=== PATIENT | female | born 1960 | race Two or more races ===

== ENCOUNTER → 2017-02-08 | Outpatient (CLI) | payer BC ==
[~2017-02-08] MED LIST: AMLODIPINE BESYL5 MG; COREG6.25 MG PO; HYDROCHLOROTHIA25 MG; INDERAL LA PO; K-DUR10 MEQ PO; LISINOPRIL-HCTZ1 T17 PO; LOMOTIL TABLET1 TAB PO; LORTAB 5/500 TA1 TA1 PO; METFORMIN HCL500 M3 PO; NEXIUM20 MG; OMEPRAZOLE40 MG PO; PERCOCET 5/321 UDTAB PO; PROVERA10 MG PO; ZESTRIL40 MG PO
--- NOTE | ~2017-02-08 | PFT ---
[id number] [facility] [address] [place], [place] [address] [id number] O MR#: [id number] NAME: CARYL VILLAR ROOM: SEX: F STUDY DATE/TIME: 02/09/2017 : 1960 AGE: 56 STUDY DESCRIPTION: Attending Physician: Danish Rivero M.D. Referring Physician: Danish Rivero M.D. Primary Care Physician: Danish Rivero M.D. PULMONARY DIAGNOSTIC REPORT EXAM Pulmonary function test. FINDINGS Spirometry is normal. There is no significant response to bronchodilators. Flow volume loop is essentially normal. Lung volumes are fairly unremarkable, although ERV is markedly reduced and I suspect that is an erroneous finding. Diffusion capacity also is markedly increased and I also suspect that might be erroneous, although no comments were made by the recreational therapy technician. Please interpret those numbers with caution. Overall, however, spirometry is normal. Dictated by... Jaycob Lynch M.D. WAYNE/thelma TD: 02/10/2017 06:25 JOB #: [id number] PULMONARY DIAGNOSTIC REPORT Page 1 of 1
== END | disposition home or self-care (01) ==
LOC: CRC 13:32
DX: R06.09 Other forms of dyspnea (principal)
CPT/HCPCS: 94060; 94726; 94729

== ENCOUNTER → 2017-02-25 | Outpatient (CLI) | payer BC ==
[2017-02-25 14:19] LABS: ALBUMIN SERUM 4.7 g/dL (3.5-5.0); BILIRUBIN,TOTAL 0.5 mg/dL (0.2-2.0); CALCIUM SERUM 9.6 mg/dL (8.4-10.2); CREATININE SERUM 0.4 mg/dL (0.6-1.4); GLOM FILT RATE Estimated 118.1 mL/min (>60); POTASSIUM 3.6 mmol/L (3.5-5.1); PROTEIN TOTAL SERUM 7.4 g/dL (6.0-8.3)
[2017-02-28 10:23] LABS: MICROALB UR (PNL) 13.8 mg/dL (***)
== END | disposition home or self-care (01) ==
LOC: CLAB 13:05
PROVIDERS: Internal Medicine Endocrinology, Diabetes & Metabolism
DX: E11.65 Type 2 diabetes mellitus with hyperglycemia (principal)
CPT/HCPCS: 36415; 80053; 80061; 82043; 82570; 83036; 84443

== ENCOUNTER → 2017-03-02 | Outpatient (CLI) | payer BC ==
--- NOTE | ~2017-03-02 | US6 ---
[facility] A Service of [facility] RADIOLOGY TEXT RESULTS PATIENT: CARYL VILLAR LOCATION: [facility] : 64 UNIT #: [id number] AGE: [address]: Danish Rivero MD SEX: F ORDER DR: [id number] [facility]. [place], [place] [address] [id number] O MR#: [id number] Acc #: [id number] NAME: CARYL VILLAR : 1960 SEX: F STUDY DATE/TIME: 03/02/2017 8:27 UNIT: [facility] ROOM: STUDY DESCRIPTION: US Abdominal Limited Attending Physician: Danish Rivero M.D. Referring Physician: Danish Rivero M.D. Ordering Physician: Danish Rivero M.D. Primary Care Physician: Danish Rivero M.D. MEDICAL IMAGING REPORT This report is preliminary unless electronic signature is present EXAM Right upper quadrant ultrasound. DATE OF EXAM 03/02/2017 INDICATION Abnormal elevated liver function tests. Nausea on and off for 6 months. TECHNIQUE Simms-scale and color Doppler sonographic images were obtained through the right upper quadrant. FINDINGS Pancreas is not well seen. The patient is noted to have diffuse hepatic steatosis, and the liver is enlarged measuring up to 17.3 cm in craniocaudal dimensions. The liver is difficult to penetrate. No obvious lesions are seen. The main portal vein is patent with hepatopetal flow. Gallbladder is normal in appearance. There is no gallbladder wall thickening, no pericholecystic fluid and no stone or sludge are identified. The patient's right kidney is also normal in appearance with no solid or cystic renal mass is seen and no hydronephrosis identified. There is no intra or extrahepatic biliary dilatation. IMPRESSION 1. Hepatomegaly and diffuse hepatic steatosis. 2. Pancreas is not well seen on this examination, although it is well seen on today's CT scan. At that time, it appeared unremarkable. Dictated by... [facility] A Service of [facility] RADIOLOGY TEXT RESULTS PATIENT: CARYL VILLAR LOCATION: [facility] #: [id number] : 64 UNIT #: [id number] AGE: [address]: Danish Rivero MD SEX: F ORDER DR: Stephanie Vazquez M.D. THIS IS AN ELECTRONICALLY VERIFIED REPORT Stephanie Vazquez M.D. at 03/03/2017 10:37 AM AFF/jdorota TD: 03/02/2017 18:35 JOB #: [id number] MEDICAL IMAGING REPORT Page 1 of 1 COPY
--- NOTE | ~2017-03-02 | EKG ---
PATIENT: CARYL VILLAR UNIT #: [id number] Ventricular Rate: 66 BPM Atrial Rate: 66 BPM P-R Interval: 140 ms QRS Duration: 82 ms Q-T Interval: 420 ms QTC Calculation(Bezet): 440 ms P Canyon: 22 degrees Calculated R Canyon: 27 degrees Calculated T Canyon: 18 degrees Diagnosis Line: Normal sinus rhythm Diagnosis Line: Normal ECG Diagnosis Line: When compared with ECG of 28-JAN-2012 15:46, Diagnosis Line: No significant change was found Diagnosis Line: Confirmed by MARYCRUZ CRUZ MD ([id number]) on 03/02/2017 Diagnosis Line: 10:50:03 PM INTERPRETING MD: ANTHONY RODRIGUES
--- NOTE | ~2017-03-02 | CT55 ---
[facility] A Service of [facility] RADIOLOGY TEXT RESULTS PATIENT: CARYL VILLAR LOCATION: [facility] : 64 UNIT #: [id number] AGE: [address]: Danish Rivero MD SEX: F ORDER DR: [id number] [facility] [address] [place], [place] [address] [id number] O MR#: [id number] Acc #: [id number] NAME: CARYL VILLAR : 1960 SEX: F STUDY DATE/TIME: 03/02/2017 09:17 UNIT: [facility] ROOM: STUDY DESCRIPTION: CT Chest W Con Attending Physician: Danish Rivero M.D. Referring Physician: Danish Rivero M.D. Ordering Physician: Danish Rivero M.D. Primary Care Physician: Danish Rivero M.D. MEDICAL IMAGING REPORT This report is preliminary unless electronic signature is present EXAM CT chest with contrast 03/02/2017 0917 hours HISTORY 56-year-old with nausea, chest pain and low lung volumes for [address] 03/28/2009. TECHNIQUE Dynamic helical CT images were obtained from the thoracic inlet through the adrenal glands. Sagittal and coronal reconstructions were performed. Contrast was Isovue-370 70 mL IV. Total exam DLP 583 mGy-cm. This CT examination was performed with one or more of the following radiation dose reduction techniques: automatic exposure control, adjustment of mA and/or kV according to patient size, and iterative reconstruction. FINDINGS Images through the thoracic inlet demonstrate no thyroid lesion. There is no supraclavicular adenopathy. Images through the chest demonstrate normal caliber aorta, cardiac chambers. The pericardium is normal. The esophagus is normal. There is no lymphadenopathy. The lungs demonstrate subpleural linear fibrotic scarring laterally in the right middle lobe and right lower lobe, laterally in the lingula and medially in both lower lobes. These findings are very similar to 03/28/2009 and felt chronic. There is no acute pulmonary density. Limited views through the upper abdomen demonstrate marked diffuse low attenuation throughout the liver consistent with fatty change. The spleen, visualized portions of the pancreas are normal. The adrenal STS. [facility] A Service of [facility] & [facility] RADIOLOGY TEXT RESULTS PATIENT: CARYL VILLAR LOCATION: [facility] : 64 UNIT #: [id number] AGE: [address]: Danish Rivero MD SEX: F ORDER DR: glands are normal. Bone window images demonstrate stable mild underlying scoliosis. No bone lesions are seen. IMPRESSION 1. There are no acute pulmonary or pleural findings. The patient does have linear fibrotic scarring laterally in the right middle lobe and lingula and posteromedially in both lower lobes which is similar to 03/28/2009. This likely represents chronic scar. 2. There is no lymphadenopathy or pleural fluid. 3. Diffuse fatty infiltration of the liver similar to 03/28/2009. There is no adrenal or bone lesion. Dictated by... Anjelica Remy M.D. THIS IS AN ELECTRONICALLY VERIFIED REPORT Anjelica Remy M.D. at 03/02/2017 2:29 PM CESAR/srikanth TD: 03/02/2017 11:24 JOB #: [id number] MEDICAL IMAGING REPORT Page 1 of 1 COPY
== END | disposition home or self-care (01) ==
LOC: CGUS 07:26
DX: R07.9 Chest pain, unspecified (principal); R11.0 Nausea; J98.4 Other disorders of lung; K76.0 Fatty (change of) liver, not elsewhere classified
CPT/HCPCS: 71260; 76705; 93005; Q9967

== ENCOUNTER → 2017-03-22 | Outpatient (CLI) | payer BC ==
--- NOTE | ~2017-03-22 | US128 ---
[id number] [facility] [address] [place], [place] [address] [id number] O MR#: [id number] [facility] #: [id number] NAME: CARYL VILLAR : 1960 SEX: F STUDY DATE/TIME: 03/22/2017 15:27 UNIT: [facility] ROOM: STUDY DESCRIPTION: Thyroid Attending Physician: Alexandra Patrick M.D. Referring Physician: Alexandra Patrick M.D. Ordering Physician: Alexandra Patrick M.D. Primary Care Physician: Danish Rivero M.D. MEDICAL IMAGING REPORT This report is preliminary unless electronic signature is present EXAM Ultrasound of the thyroid gland. INDICATION Thyroid nodules. This is a followup study. Patient had an initial thyroid ultrasound in 2010 which showed a 1.1 cm solid nodule in the left lobe of the thyroid gland. Subsequent thyroid ultrasound was performed November 06, 2012. TECHNIQUE Simms-scale and color Doppler sonographic images were obtained through the thyroid gland. FINDINGS Right lobe of thyroid gland measures 1.5 x 4.1 x 1.3 cm. Left lobe measures 1.8 x 3.9 x 1.7 cm. There are multiple thyroid nodules within the inferior pole of the right lobe of the thyroid gland. There is a 6 x 3 x 6 mm anechoic structure which may reflect a cyst. There is a solid hypoechoic nodule seen more superiorly measuring 7 x 4 x 7 mm and there is an additional hypoechoic solid nodule seen within the superior pole of the right lobe of the thyroid gland measuring 5 x 3 x 5 mm. Within the left lobe of the thyroid gland, additional nodules are seen including a 1.2 x 0.6 x 0.7 cm nodule within the superior pole. A mixed solid and cystic lesion is seen inferior to it measuring 1.1 x 0.8 x 0.8 cm and within the inferior pole, there is a 1.0 x 0.6 x 0.8 cm hypoechoic nodule which potentially may reflect a complex cyst.. It is unclear if any of these nodules on the left corresponds to the previously identified nodule from 2011. IMPRESSION This patient has multiple bilateral thyroid nodules. These were not present on the prior exam from October 2012. None meet size criteria for percutaneous sampling at this time. I would suggest short-term sonographic followup in 6 months to document stability. Dictated by... Stephanie Vazquez M.D. THIS IS AN ELECTRONICALLY VERIFIED REPORT Stephanie Vazquez M.D. at 03/23/2017 5:22 PM ABRIL/suzette TD: 03/23/2017 11:31 JOB #: [id number] MEDICAL IMAGING REPORT Page 1 of 1 COPY
== END | disposition home or self-care (01) ==
LOC: CGUS 13:30
DX: E04.2 Nontoxic multinodular goiter (principal)
CPT/HCPCS: 76536

== ENCOUNTER 2017-05-09 13:39 | Emergency (ER) | payer BC ==
--- NOTE | ~2017-05-09 | CR58 ---
[facility] A Service of [facility] RADIOLOGY TEXT RESULTS PATIENT: CARYL VILLAR LOCATION: [facility] : 64 UNIT #: [id number] AGE: [address]: Dev Ram MD SEX: F ORDER DR: [id number] [id number] [facility]. [place], [place] [address] [id number] P MR#: [id number] Acc #: [id number] NAME: CARYL VILLAR : 1960 SEX: F STUDY DATE/TIME: 05/09/2017 14:39 UNIT: [facility] ROOM: STUDY DESCRIPTION: CR Cervical Spine 2 or 3 Views Attending Physician: Dev Ram M.D. Ordering Physician: [facility] Primary Care Physician: Danish Rivero M.D. MEDICAL IMAGING REPORT This report is preliminary unless electronic signature is present EXAM Cervical series 05/09/2017 INDICATIONS 56-year-old female who fell off porch today and has pain in the right neck. TECHNIQUE Dedicated odontoid, open-mouth odontoid, lateral and frontal views of the cervical spine were performed. COMPARISON STUDIES No comparisons. FINDINGS Dens appears intact. Lateral masses not adequately visualized for radiographic clearance. There are lucencies associated with the skull base or the posterior ring of C1 on the dedicated odontoid view, likely related to nutrient canals, sutures or vascular channels but are incompletely characterized on this plain film study. The patient would benefit from further evaluation with dedicated CT. Cervicothoracic junction intact. No distinct evidence of acute fracture or malalignment. Soft tissues are unremarkable. There is mild lower cervical facet arthropathy and there is mild degenerative disc disease at C5-C6. Carotid artery calcifications are present on the left. There is uncovertebral spurring in the kvq-wd-ssszo cervical levels. IMPRESSION 1. The dens and lateral masses are suboptimally visualized or assessed. Suggest further evaluation with a dedicated CT of the cervical spine for further assessment and characterization. [facility] A Service of [facility] RADIOLOGY TEXT RESULTS PATIENT: CARYL VILLAR LOCATION: [facility] : 64 UNIT #: [id number] AGE: [address]: Dev Ram MD SEX: F ORDER DR: 2. There is degenerative change in the uxd-qo-lrjgv cervical levels related to degenerative disc disease and facet arthropathy. Uncovertebral spurring also present in the wgy-cz-pnjol cervical spine. 3. Atherosclerotic calcifications of the carotid system on the left, a risk factor for stroke. STAT * RESULT Dictated by... Juice Murphy M.D. THIS IS AN ELECTRONICALLY VERIFIED REPORT Juice Murphy M.D. at 05/09/2017 5:02 PM RUDY/lexy TD: 05/09/2017 16:27 JOB #: [id number] MEDICAL IMAGING REPORT Page 1 of 1 COPY
--- NOTE | ~2017-05-09 | CR142 ---
[facility] A Service of [facility] & [facility] RADIOLOGY TEXT RESULTS PATIENT: CARYL VILLAR LOCATION: [facility] : 64 UNIT #: [id number] AGE: [address]: Dev Ram MD SEX: F ORDER DR: [id number] [facility] [address] [facility]. [place], [place] [address] [id number] E MR#: [id number] Acc #: [id number] NAME: CARYL VILLAR : 1960 SEX: F STUDY DATE/TIME: 05/09/2017 14:29 UNIT: [facility] ROOM: STUDY DESCRIPTION: CR Hand Min 3 Views Rt Attending Physician: Dev Ram M.D. Ordering Physician: Ed Doctor [id number] [facility] Primary Care Physician: Danish Rivero M.D. MEDICAL IMAGING REPORT This report is preliminary unless electronic signature is present EXAM Right hand 05/09/2017 INDICATIONS Trauma, fell off porch. Pain. Severe pain in the right hand. Clinical concern for dislocation or fracture. Swelling of the right hand. TECHNIQUE Two views of the right hand were performed. No comparisons. FINDINGS Exam degraded by nonstandard positioning and only 2 views were performed. The bones are osteopenic. No acute fracture. No retained opaque foreign body. There is artifact presumably related to an air cast or splint. IMPRESSION Limited imaging of the right hand is negative. No distinct fracture. Dictated by... Juice Murphy M.D. THIS IS AN ELECTRONICALLY VERIFIED REPORT Juice Murphy M.D. at 05/10/2017 12:56 PM Scott TD: 05/09/2017 23:01 JOB #: [id number] MEDICAL IMAGING REPORT Page 1 of 1 COPY
--- NOTE | ~2017-05-09 | CR94 ---
[facility] A Service of [facility] RADIOLOGY TEXT RESULTS PATIENT: CARYL VILLAR LOCATION: [facility] : 64 UNIT #: [id number] AGE: [address]: Dev Ram MD SEX: F ORDER DR: [id number] [facility] [address] [facility]. [place], [place] [address] [id number] E MR#: [id number] Acc #: [id number] NAME: CARYL VILLAR : 1960 SEX: F STUDY DATE/TIME: 05/09/2017 17:40 UNIT: [facility] ROOM: STUDY DESCRIPTION: CR Elbow Min 3 Views Rt Attending Physician: Dev Ram M.D. Ordering Physician: Dev Ram M.D. Primary Care Physician: Danish Rivero M.D. MEDICAL IMAGING REPORT This report is preliminary unless electronic signature is present EXAM Right elbow. INDICATIONS Fall off of porch. Dislocated right elbow. FINDINGS Three views of the right elbow compared to 05/09/2017. Postreduction radiographs show anatomic alignment of the right elbow. There are 2 osseous fragments in the anterior joint recess compatible with fracture fragments. These are presumably off of the coronoid process of the ulna. There is a small joint effusion. IMPRESSION 1. Anatomic alignment status post elbow reduction. 2. Fracture fragments in the anterior joint recess presumably from an avulsed fracture off the coronoid process of the ulna. Dictated by... Sonny Castellon M.D. THIS IS AN ELECTRONICALLY VERIFIED REPORT Sonny Castellon M.D. at 05/10/2017 10:49 AM MARCELLA/thelma TD: 05/10/2017 08:26 JOB #: [id number] MEDICAL IMAGING REPORT Page 1 of 1 COPY
--- NOTE | ~2017-05-09 | CR230 ---
[facility] A Service [facility] RADIOLOGY TEXT RESULTS PATIENT: CARYL VILLAR LOCATION: [facility] : 64 UNIT #: [id number] AGE: [address]: Dev Ram MD SEX: F ORDER DR: [id number] [address] [address] [id number] E MR#: [id number] Acc #: [id number] NAME: CARYL VILLAR : 1960 SEX: F STUDY DATE/TIME: 05/09/2017 14:24 UNIT: [facility] ROOM: STUDY DESCRIPTION: CR Shoulder Min 2 View Rt Attending Physician: Dev Ram M.D. Ordering Physician: [facility] Primary Care Physician: Danish Rivero M.D. MEDICAL IMAGING REPORT This report is preliminary unless electronic signature is present EXAM Right shoulder 05/09/2017 INDICATIONS 56-year-old female who fell off porch today. Severe pain and swelling in the right neck and right shoulder. Collarbone pain and elbow pain. TECHNIQUE 2 views of the right shoulder. COMPARISON STUDIES No comparisons. FINDINGS The bones are osteoporotic. No acute fracture. No secondary sign of dislocation. A scapular Y-view was not performed. No distinct evidence of shoulder separation. IMPRESSION 1. Osteoporosis but no acute fracture or dislocation. Dictated by... Juice Murphy M.D. THIS IS AN ELECTRONICALLY VERIFIED REPORT Juice Murphy M.D. at 05/10/2017 12:56 PM RUDY/lexy TD: 05/09/2017 22:36 JOB #: [id number] MEDICAL IMAGING REPORT [facility] A Service [facility] RADIOLOGY TEXT RESULTS PATIENT: CARYL VILLAR LOCATION: [facility] : 64 UNIT #: [id number] AGE: [address]: Dev Ram MD SEX: F ORDER DR: Page 1 of 1 COPY
--- NOTE | ~2017-05-09 | CR133 ---
[facility] A Service of [facility] RADIOLOGY TEXT RESULTS PATIENT: CARYL VILLAR LOCATION: [facility] : 64 UNIT #: [id number] AGE: [address]: Dev Ram MD SEX: F ORDER DR: [id number] [id number] [facility]. [place], [place] [address] [id number] P MR#: [id number] Acc #: [id number] NAME: CARYL VILLAR : 1960 SEX: F STUDY DATE/TIME: 05/09/2017 14:36 UNIT: [facility] ROOM: STUDY DESCRIPTION: CR Forearm 2 View Rt Attending Physician: Dev Ram M.D. Ordering Physician: [facility] Primary Care Physician: Danish Rivero M.D. MEDICAL IMAGING REPORT This report is preliminary unless electronic signature is present EXAM Right forearm 05/09/2017 INDICATIONS 56-year-old female who fell off porch today and has pain in the elbow. Forearm pain. Clinical concern for fracture or dislocation. TECHNIQUE 2 views of the right forearm. COMPARISON STUDIES No comparisons. FINDINGS The entire right forearm is not included in the field of view and these were apparently the best images possible given the patient's functional status. There is artifact related to the presumed splint or brace. The bones are osteopenic. The patient has a known elbow dislocation partially included within the field of view. Please see the elbow series for further details. No acute fracture of the forearm identified. IMPRESSION 1. The patient has an elbow dislocation partially included in the field of view. Please see the elbow series for further details. 2. The bones are osteopenic. No acute fracture. Artifact related to a splint or brace. STAT * RESULT [facility] A Service of [facility] RADIOLOGY TEXT RESULTS PATIENT: CARYL VILLAR LOCATION: [facility] : 64 UNIT #: [id number] AGE: [address]: Dev Ram MD SEX: F ORDER DR: Dictated by... Juice Murphy M.D. THIS IS AN ELECTRONICALLY VERIFIED REPORT Juice Murphy M.D. at 05/09/2017 3:46 PM INDERJITY/pcl TD: 05/09/2017 15:37 JOB #: [id number] MEDICAL IMAGING REPORT Page 1 of 1 COPY
--- NOTE | ~2017-05-09 | CT52 ---
[facility] A Service of [facility] & [facility] RADIOLOGY TEXT RESULTS PATIENT: CARYL VILLAR LOCATION: [facility] : 64 UNIT #: [id number] AGE: [address]: Dev Ram MD SEX: F ORDER DR: [id number] [facility] [address] [place], [place] [address] [id number] E MR#: [id number] Acc #: [id number] NAME: CARYL VILLAR : 1960 SEX: F STUDY DATE/TIME: 05/09/2017 17:25 UNIT: [facility] ROOM: STUDY DESCRIPTION: CT Cervical Spine Wo Cont Attending Physician: Dev Ram M.D. Ordering Physician: Dev Ram M.D. Primary Care Physician: Danish Rivero M.D. MEDICAL IMAGING REPORT This report is preliminary unless electronic signature is present EXAM CT C-spine without contrast dated 05/09/2017. COMPARISON Plain film cervical spine dated 05/09/2017. HISTORY Patient fell today and hit top of the head. Pain behind forehead. Neck pain in the right side. The CT exam was performed with one or more of the following radiation dose reduction techniques: automatic exposure control, adjustment of mA and/or kV according to patient size, and iterative reconstruction. FINDINGS CT of the cervical spine was obtained without contrast in the axial plane followed by sagittal and coronal reformats. There is no acute fracture. Endplate posterior prominent osteophytes are noted at C5-6 with associated mild canal stenosis. There is loss of the normal curvature at this level. Anteroinferior endplate osteophyte is also seen at C6 with probably some associated ossification of the internal longitudinal ligament. Benign. The other levels do not demonstrate any significant focal disc herniation, canal stenosis or neural foraminal narrowing. Mild facet changes are noted in the mid cervical spine. Pre and paravertebral soft tissues do not demonstrate any significant abnormality. Fatty infiltration of bilateral parotid glands are noted. There is a hypodense lesion within the posterior mid left thyroid lobe measuring 7.5 x 6 mm. Imaged lung apices are within normal limits. IMPRESSION 1. No acute fracture. STS. [facility] A Service of [facility] & [facility] RADIOLOGY TEXT RESULTS PATIENT: CARYL VILLAR [facility] [id number] : 64 UNIT #: [id number] AGE: [address]: Dev Ram MD SEX: F ORDER DR: 2. Degenerative changes are noted at C5-6 with posterior central osteophyte causing mild canal stenosis. No significant associated neural foraminal narrowing is seen. 3. 7.5 mm left thyroid hypodense nodule is seen, incompletely characterized in the current study. Hounsfield unit measures 16 and it is probably a colloid cyst based on statistics. Dictated by... Dyan Alan M.D. THIS IS AN ELECTRONICALLY VERIFIED REPORT Dyan Alan M.D. at 05/10/2017 9:01 PM CPR/cmmatilde TD: 05/10/2017 08:46 JOB #: [id number] MEDICAL IMAGING REPORT Page 1 of 1 COPY
--- NOTE | ~2017-05-09 | CT71 ---
[facility] A Service of [facility] & [facility] RADIOLOGY TEXT RESULTS PATIENT: CARYL VILLAR LOCATION: [facility] : 64 UNIT #: [id number] AGE: [address]: Dev Ram MD SEX: F ORDER DR: [id number] [facility] [address] [place], [place] [address] [id number] E MR#: [id number] Acc #: [id number] NAME: CARYL VILLAR : 1960 SEX: F STUDY DATE/TIME: 05/09/2017 14:59 UNIT: [facility] ROOM: STUDY DESCRIPTION: CT Head Wo Contrast Attending Physician: Dev Ram M.D. Ordering Physician: Alex Corbin M.D. Primary Care Physician: Danish Rivero M.D. MEDICAL IMAGING REPORT This report is preliminary unless electronic signature is present EXAM CT head, 05/09/2017 HISTORY Fall today, hit top head, pain behind forehead. TECHNIQUE CT head performed skull base through vertex without intravenous contrast. Comparison 09/30/2011. This CT exam was performed with one or more of the following radiation dose reduction techniques: Automatic exposure control, adjustment of mA and/or kV according to patient size, and iterative reconstruction. FINDINGS Brainstem unremarkable. Cerebellum and cerebral hemispheres show normal garcia matter-white matter differentiation. No hemorrhage. No evidence of acute cortical ischemia. Periventricular chronic microvascular ischemic change more pronounced in the right frontal lobe and more pronounced than on prior examination. The midline structures are nondisplaced. No acute-appearing basal ganglia abnormality. Ventricles, cisterns and sulci within normal limits of size and contour. No intra- or extraaxial mass effect or abnormal intracranial fluid collection. The visualized intraorbital soft tissues are unremarkable. No fracture. Stable appearance of near-complete opacification right sphenoid sinus. No change from prior study. There is no indication of acute sinus disease. There may be some mild soft tissue swelling in the left temporal scalp region. Correlate with exam. There is no soft tissue defect, subcutaneous air or radiodense foreign body. IMPRESSION 1. No acute abnormality is seen in brain. If patient has ongoing neurologic symptoms, consider follow-up imaging. STS. [facility] A Service of [facility] & [facility] RADIOLOGY TEXT RESULTS PATIENT: CARYL VILLAR LOCATION: [facility] : 64 UNIT #: [id number] AGE: [address]: Dev Ram MD SEX: F ORDER DR: 2. Periventricular probable sequelae of chronic microvascular ischemia. More pronounced in the right frontal lobe and more pronounced overall than in 2011. 3. Chronic sinus disease in the right sphenoid sinus not significantly changed from 2011. 4. No fracture. 5. There appears to be some mild soft tissue swelling in the left temporal scalp region. Please correlate with location of injury and clinical examination. There is no soft tissue defect, subcutaneous air or radiodense foreign body. Dictated by... Hernandez Willis M.D. THIS IS AN ELECTRONICALLY VERIFIED REPORT Hernandez Willis M.D. at 05/10/2017 5:40 PM REGAN/debi TD: 05/09/2017 22:46 JOB #: [id number] MEDICAL IMAGING REPORT Page 1 of 1 COPY
--- NOTE | ~2017-05-09 | CR94 ---
[facility] A Service of [facility] RADIOLOGY TEXT RESULTS PATIENT: CARYL VILLAR LOCATION: [facility] : 64 UNIT #: [id number] AGE: [address]: Dev Ram MD SEX: F ORDER DR: [id number] [address] [facility] [place], [place] [address] [id number] P MR#: [id number] Acc #: [id number] NAME: CARYL VILLAR : 1960 SEX: F STUDY DATE/TIME: 05/09/2017 14:30 UNIT: [facility] ROOM: STUDY DESCRIPTION: CR Elbow Min 3 Views Rt Attending Physician: Claudette Messina A.P.R.N. Ordering Physician: [facility] Primary Care Physician: Danish Rivero M.D. MEDICAL IMAGING REPORT This report is preliminary unless electronic signature is present EXAM Right elbow 05/09/2017 INDICATIONS 56-year-old female with trauma after fall severe pain. Clinical concern for dislocation. The majority of the pain is in the elbow and collarbone. Fall off a porch today. TECHNIQUE 2 views of the right elbow. COMPARISON STUDIES No comparisons. FINDINGS Exam is degraded by nonstandard positioning. Only 2 views could be secondary to patient functional status. There is a dislocation of the right elbow with the medial and lateral epicondyles displaced anterior to the ulna on the limited lateral view by a distance of at least 2-2.5 cm. There is no distinct associated fracture. Post-reduction imaging recommended when clinically appropriate. There is overlap of the epicondyles upon the proximal radius and ulna on the lateral view and also on the limited frontal projection. IMPRESSION 1. Abnormal examination demonstrating an elbow dislocation. The epicondyles are displaced anteriorly by a distance of at least 2-2.5 cm on the limited lateral view. No distinct fracture. Post-reduction imaging recommend when clinically appropriate for further assessment. STAT * RESULT [facility] A Service of [facility] & [facility] RADIOLOGY TEXT RESULTS PATIENT: CARYL VILLAR LOCATION: [facility] : 64 UNIT #: [id number] AGE: [address]: Dev Ram MD SEX: F ORDER DR: Dictated by... Juice Murphy M.D. THIS IS AN ELECTRONICALLY VERIFIED REPORT Juice Murphy M.D. at 05/09/2017 3:48 PM RUDY/lexy TD: 05/09/2017 15:34 JOB #: [id number] MEDICAL IMAGING REPORT Page 1 of 1 COPY
== END 2017-05-09 19:52 | disposition home or self-care (01) ==
LOC: CED 13:39
DX: S53.114A Anterior dislocation of right ulnohumeral joint, initial encounter (principal); S46.911A Strain of unspecified muscle, fascia and tendon at shoulder and upper arm level, right arm, initial encounter; S13.4XXA Sprain of ligaments of cervical spine, initial encounter; S00.93XA Contusion of unspecified part of head, initial encounter; E11.9 Type 2 diabetes mellitus without complications; W01.198A Fall on same level from slipping, tripping and stumbling with subsequent striking against other object, initial encounter; Y92.009 Unspecified place in unspecified non-institutional (private) residence as the place of occurrence of the external cause
CPT/HCPCS: 24600; 36415; 70450; 72040; 72125; 73030; 73080; 73090; 73130; 99152; 99284; J2405

== ENCOUNTER → 2017-07-04 | Outpatient (CLI) | payer BC ==
--- NOTE | ~2017-07-04 | US37 ---
[facility] A Service of [facility] & [facility] RADIOLOGY TEXT RESULTS PATIENT: CARYL VILLAR LOCATION: [facility] : 64 UNIT #: [id number] AGE: [address]: Callum Garcia MD SEX: F ORDER DR: [id number] [facility] [address] [place], [place] [address] [id number] O MR#: [id number] Acc #: [id number] NAME: CARYL VILLAR : 1960 SEX: F STUDY DATE/TIME: 07/04/2017 9:32 UNIT: [facility] ROOM: STUDY DESCRIPTION: US Carotid W/Doppler Bilateral Attending Physician: Callum Garcia M.D. Referring Physician: Callum Garcia M.D. Ordering Physician: Callum Garcia M.D. Primary Care Physician: Danish Rivero M.D. MEDICAL IMAGING REPORT This report is preliminary unless electronic signature is present EXAM Bilateral carotid duplex, 07/04/2017 HISTORY Carotid stenosis. FINDINGS There is patent flow seen throughout the right common carotid, internal carotid, and external carotid arteries. There is no significant atherosclerosis noted throughout the carotid vasculature. The right common carotid artery peak velocity is 77 cm/sec. The right internal carotid artery peak systolic/end-diastolic velocities are: Proximal 62/27 cm/sec, mid 81/36 cm/sec, distal 77/34 cm/sec. The right external carotid artery peak velocity is 56 cm/sec, vertebral artery 39 cm/sec. The right ICA/CCA ratio is 1.0. There is patent flow seen throughout the left common carotid, internal carotid, and external carotid arteries. There is no significant atherosclerosis noted throughout the vasculature. The left common carotid artery peak velocity is 69 cm/sec. The left internal carotid artery peak systolic/end-diastolic velocities are: Proximal 37/15 cm/sec, mid 58/30 cm/sec, distal 57/26 cm/sec. The left external carotid artery peak velocity is 52 cm/sec, vertebral artery 45 cm/sec. The left ICA/CCA ratio is 0.8. IMPRESSION 1. Normal study of the right carotid artery, with no significant atherosclerosis noted. 2. Left carotid artery is an otherwise normal study, with no significant atherosclerosis noted. 3. Vertebral flow is antegrade bilaterally. [facility]. [facility] A Service of [facility] RADIOLOGY TEXT RESULTS PATIENT: CARYL VILLAR LOCATION: [facility] : 64 UNIT #: [id number] AGE: [address]: Callum Garcia MD SEX: F ORDER DR: Dictated by... Jay Miguel M.D. THIS IS AN ELECTRONICALLY VERIFIED REPORT Jay Miguel M.D. at 07/06/2017 11:50 AM ANDREA/debi TD: 07/04/2017 22:43 JOB #: [id number] MEDICAL IMAGING REPORT Page 1 of 1 COPY
== END | disposition home or self-care (01) ==
LOC: CNIV 08:53
DX: R94.31 Abnormal electrocardiogram [ECG] [EKG] (principal); I10 Essential (primary) hypertension; E78.00 Pure hypercholesterolemia, unspecified; E11.9 Type 2 diabetes mellitus without complications
CPT/HCPCS: 93880